=== PATIENT | female | born 1995 | race Caucasian/White ===

== ENCOUNTER 2018-08-16 09:01 | Day surgery (SDC) | payer BC ==
[2018-08-15 13:59] VITALS: BMI 22.8
[2018-08-16 10:28] LABS: #Basophils 0.1 thou/uL (0.0-0.2); #Eosinphils 0.2 thou/uL (0.0-0.7); #Lymphocytes 1.7 thou/uL (1.20-3.40); #Monocytes 0.5 thou/uL (0.11-0.59); #Neutrophils 2.9 thou/uL (1.40-6.50); %Basophils 1.2 % (0.0-1.0); %Lymphocytes 32.4 % (21.0-51.0); %Monocytes 9.2 % (0.0-10.0); %Neutrophils 54.2 % (42.0-75.0); Hemoglobin 15.2 g/dL (12.0-16.0); Mean Corpuscular HGB CONC 33.9 g/dL (32.0-36.0); Mean Corpuscular Hemoglobin 28.5 pg (27.0-31.0); Mean Corpuscular Volume 84.1 fL (78.0-98.0); Mean Platelet Volume 7.3 fL (7.4-10.4); Platelet Count 242 thou/uL (130-400); RBC Distribution Width 11.9 % (11.5-14.5); Red Blood Cell (RBC) Count 5.32 mill/uL (4.20-5.40); White Blood Cell (WBC) Count 5.3 thou/uL (4.8-10.8)
[2018-08-16 10:40] LABS: Bilirubin Negative (Negative); Blood, Urine Trace (Negative); Clarity CLEAR (Clear); Glucose, Urine (Dipstick) Negative (Negative); Leukocyte Negative (Negative); Nitrite Negative (Negative); Protein, Urine (Dipstick) Negative (Neg-Trace); Specific Gravity, Urine 1.021 (1.002-1.036); Urobilinogen 0.2 mg/dL (0.2-1.0); pH, Urine 5.5 (5.0-9.0)
[2018-08-16 10:43] LABS: Bacteria/HPF None Seen HPF (None Seen); Hyaline Casts/LPF 0-3 HYALINE CAST LPF (0-3 Hyaline); Pathc Cast-AUWi Flag 0.13 (0-2.49); RBC/HPF 0-3 HPF (0-3); Squamous Epithelial 0-3 HPF (0-3); WBC/HPF 0-3 HPF (0-3)
[2018-08-16] MEDS ORDERED: Scopolamine 1.5 mg/72 hour Patch ONE (11:05)
[2018-08-16] MEDS ORDERED: Fentanyl 100 MCG/2 ML VIAL ONE (11:07)
[2018-08-16] MEDS ORDERED: Bupivacaine PF 0.5% 30 ML VIAL ONE (11:14)
[2018-08-16] MEDS ORDERED: Bacitracin Zinc Ointment 30 gm TUBE ONE (11:14)
[2018-08-16] MEDS ORDERED: Ketorolac Tromethamine 30 MG/ML VIAL ONE ×2 (13:09→17:08)
[2018-08-16] MEDS ORDERED: diphenhydrAMINE 50 MG/ML VIAL ONE (17:08)
[2018-08-16] MEDS ORDERED: Lidocaine 1% PF 5 ML VIAL ONE (17:08)
[2018-08-16] MEDS ORDERED: Ondansetron PF 4 MG/2 ML Vial ONE (17:08)
[2018-08-16] MEDS ORDERED: Dexamethasone 20 MG/5 ML VIAL ONE (17:08)
[2018-08-16] MEDS ORDERED: PROPOFOL 200 MG/20 ML VIAL ONE (17:08)
--- NOTE | 2018-08-16 20:40 | OP ---
DATE OF PROCEDURE: 08/16/2018 PREOPERATIVE DIAGNOSIS: Right wrist volar ganglion. POSTOPERATIVE DIAGNOSIS: Right wrist volar ganglion. PROCEDURE PERFORMED: Wrist excision of volar ganglion with arthrotomy via radiocarpal joint. FINDINGS: A 2.5 x 1.0 cm ganglion on both sides of flexor carpi radialis tendon with subluxation and decompression of the median nerve primary branch and not the sensory palmar branch. COMPLICATIONS: None. ESTIMATED BLOOD LOSS: 5 mL. TOURNIQUET TIME: 22 minutes. DESCRIPTION OF PROCEDURE: After successful general endotracheal anesthesia, the limb was prepped and draped. We outlined the zigzag incision centered on the mass and slightly radial to it. We then injected with 10 mL of 0.5% Marcaine. We exsanguinated the limb and inflated the tourniquet to 250 mmHg pressure. At this point, we then made a zigzag incision, carried through skin and subcutaneous tissue, and identified the ganglion. We the cutaneous branch of the nerve from the ganglion wall, the ganglion wall from the undersurface of the flexor carpi radialis where it was straddled both over the tendon. We then lifted the tendon up and followed the stalk, went into the scaphoradial joint just radial to the FCR tendon and just ulnar to the artery. We then dissected a 2 mm hole initially in the joint, expanded it to 3, visualized the joint and then removed the stalk. We irrigated this with 3 mL of Celestone, deflated the tourniquet, obtained hemostasis with 2 vessel clips and then closed this with interrupted 4-0 nylon. The patient left the operating room without evidence of anesthetic or operative complication. Job ID: [id number]
== END 2018-08-16 14:22 | disposition home or self-care (01) ==
LOC: SDC 09:01
PROVIDERS: ATTEND Orthopaedic Surgery Hand Surgery
PROC: 0LB50ZZ Excision of Right Lower Arm and Wrist Tendon, Open Approach (ICD-10-PCS; principal; 2018-08-16)
DX: M67.431 Ganglion, right wrist (principal); J45.909 Unspecified asthma, uncomplicated; G43.909 Migraine, unspecified, not intractable, without status migrainosus; F41.9 Anxiety disorder, unspecified; Z79.51 Long term (current) use of inhaled steroids; Z79.899 Other long term (current) drug therapy; Z88.5 Allergy status to narcotic agent; Z88.6 Allergy status to analgesic agent
CPT/HCPCS: 81001; 85025; 88304; J0690; J1100; J1200; J1885; J2001; J2405; J2704; J3010; S0020

== ENCOUNTER 2018-12-16 07:49 | Outpatient (CLI) | payer BC ==
--- NOTE | 2018-12-16 09:32 | MRI ---
MRI Upper Ext Jt Rt W WO Con History: M 65.439 wrist ganglion Comparison: None. Findings: Bones: No acute fracture or malalignment. No contusion. No marrow edema. Scaphoid is intact . Tubercle of the trapezium and the hamate are intact. Tendons: Abnormal increased fluid surrounding the flexor carpi radialis tendon at the level of the pr oximal carpal row to its insertion. There appears to be adjacent susceptibility artifact and focal ectasia of the tendon sheath which may be post surgical in nature. This is at the region of interest marker with the adventitial bursa measuring 1.4 cm in transverse by 0.5 cm and AP by 1.5 cm in craniocaudal dimension. Remainder of the tendons are normal. Soft tissues: A small polar ganglion pseudocyst at the volar lip of the radius at the capsule with ne ar abutment of the radial artery and veins. This small ganglion pseudocyst measures 0.4 x 0.3 x 0.4 cm and is suggests proximal to the iatrogenic/adventitial bursa. Muscles: Muscle signal and bulk is normal. Impression: 1. Focal area of increased tenosynovial fluid which appears to communicate with an iatrogenic/adventi tial bursa of the flexor carpi radialis tendon at the level of the proximal carpal row with adjacent susceptibility. This may be post surgical in nature. 2. Small ganglion pseudocyst at the volar radial lip with size as above.
== END 2018-12-16 07:50 | disposition home or self-care (01) ==
LOC: SCSMRI 07:49
PROVIDERS: ATTEND Orthopaedic Surgery Hand Surgery
DX: M67.431 Ganglion, right wrist (principal); M65.831 Other synovitis and tenosynovitis, right forearm; R93.7 Abnormal findings on diagnostic imaging of other parts of musculoskeletal system

== ENCOUNTER 2019-02-03 06:49 | Outpatient (CLI) | payer BC ==
[2019-02-03 11:35] LABS: #Eosinphils 0.1 thou/uL (0.0-0.7); #Lymphocytes 2.1 thou/uL (1.20-3.40); #Monocytes 0.5 thou/uL (0.11-0.59); #Neutrophils 3.7 thou/uL (1.40-6.50); %Basophils 0.2 % (0.0-1.0); %Monocytes 7.4 % (0.0-10.0); %Neutrophils 57.4 % (42.0-75.0); Hemoglobin 14.5 g/dL (12.0-16.0); Mean Corpuscular Hemoglobin 28.6 pg (27.0-31.0); Mean Platelet Volume 7.8 fL (7.4-10.4); Platelet Count 206 thou/uL (130-400); RBC Distribution Width 12.1 % (11.5-14.5); Red Blood Cell (RBC) Count 5.07 mill/uL (4.20-5.40); White Blood Cell (WBC) Count 6.5 thou/uL (4.8-10.8)
[2019-02-03 11:38] LABS: BHCG - Serum Negative (NEGATIVE); Pregs Control Background? CLEAR/WHITE (CLR/WHITE); Pregs Control Bar Appear? YES (CONTROL BAR)
== END 2019-02-03 06:50 | disposition home or self-care (01) ==
LOC: LABBT 06:49
PROVIDERS: ATTEND Orthopaedic Surgery Hand Surgery
DX: Z01.812 Encounter for preprocedural laboratory examination (principal); M67.431 Ganglion, right wrist
CPT/HCPCS: 84703; 85025

== ENCOUNTER 2019-02-04 08:09 | Day surgery (SDC) | payer BC ==
[2019-02-03 09:40] VITALS: BMI 22.1
[2019-02-04] MEDS ORDERED: Sodium Chloride 0.9% 10 ML ONE (09:47)
[2019-02-04] MEDS ORDERED: Bacitracin Zinc Ointment 30 gm TUBE ONE (09:47)
[2019-02-04] MEDS ORDERED: Betamet Acet/Betamet Na Ph 30 MG/5 ML VIAL ONE (09:47)
[2019-02-04] MEDS ORDERED: Bupivacaine PF 0.5% 30 ML VIAL ONE (09:47)
[2019-02-04] MEDS ORDERED: Fentanyl 100 MCG/2 ML VIAL ONE (09:50)
[2019-02-04] MEDS ORDERED: Midazolam HCl 2 mg/2 ml Vial ONE (09:50)
[2019-02-04] MEDS ORDERED: Ketorolac Tromethamine 30 MG/ML VIAL ONE (11:43)
[2019-02-04] MEDS ORDERED: HYDROcodone/Acetaminophen 5/325 mg Tablet ONE (13:05)
--- NOTE | 2019-02-05 08:35 | OP ---
DATE OF PROCEDURE: 02/04/2019 PREOPERATIVE DIAGNOSIS: 1. Right wrist volar ganglion cyst, recurrent. 2. Right wrist flexor tenosynovitis, flexor carpi radialis tendon based on preop MRI. POSTOPERATIVE DIAGNOSES: 1. Right wrist volar ganglion cyst, recurrent. 2. Right wrist flexor tenosynovitis, flexor carpi radialis tendon based on preop MRI. FINDINGS: 2.0 cm ganglion confluent with a thickened tenosynovium over the flexor carpi radialis tendon and a sessile based stalk on the scaphoradial joint. PROCEDURES PERFORMED: 1. Radioscaphoid joint arthrotomy with ganglion cyst excision. 2. Radical flexor tenosynovectomy, flexor carpi radialis tendon, right wrist. ANESTHESIA: General LMA technique augmented by 20 mL of 0.5% Marcaine, 10 given before surgery, and 10 given after wound closed. ESTIMATED BLOOD LOSS: Less than 20 mL. TOURNIQUET TIME: 28 minutes. COMPLICATIONS: None. INDICATIONS FOR PROCEDURE: The patient returned to clinic six months after previous palmar wrist ganglion excision, reports no wrist pain, but noticed a mass. We did MRI, showed recurrent ganglion along with some tenosynovitis of the flexor tendons and this will be proven by surgical exploration and definitively treated today. DESCRIPTION OF PROCEDURE: After successful general LMA technique, the limb was prepped and draped. The patient had the old incision used, extended 5 mm distal and proximal after exsanguination of the limb and inflation of the tourniquet to 250 mmHg pressure. I went through the skin and subcutaneous tissue. We identified the median nerve branch to preserve these just ulnar to the line of incision. We then found the flexor carpi radialis tendon, saw very thick tenosynovium especially where it began to go ulnar to the scaphoid and then we did a radical flexor tenosynovectomy to protect the median nerve. We then dissected the radial artery off the radial side of the mass, preserved much of its cavity as possible, followed it deep to where it surrounded the flexor carpi radialis, but we were able to free it along this line. At the base, slightly radial, after the radial artery, we found a very sessile type stalk that for 2 cm ganglion, it was almost 5 to 6 mm and removed this from the joint, having joint fluid chondral surface medially. There was no synovitis here at the radioscaphoid joint. We then removed the mass en bloc, released tourniquet, performed hemostasis and then closed the wound with interrupted 4-0 nylon mattress pattern. The patient left the operating room without evidence of anesthetic or operative complication. Job ID: [id number]
== END 2019-02-04 13:50 | disposition home or self-care (01) ==
LOC: SDC 08:09
PROVIDERS: ATTEND Orthopaedic Surgery Hand Surgery
PROC: 0LB50ZZ Excision of Right Lower Arm and Wrist Tendon, Open Approach (ICD-10-PCS; principal; 2019-02-04)
DX: M67.431 Ganglion, right wrist (principal); M65.88 Other synovitis and tenosynovitis, other site; Z88.8 Allergy status to other drugs, medicaments and biological substances
CPT/HCPCS: 88304; 88342; J0690; J0702; J1885; J2250; J3010; J3490; S0020

== ENCOUNTER 2019-02-05 13:40 | Emergency (ER) | payer BC ==
[2019-02-05] MEDS ORDERED: Ketorolac Tromethamine 30 MG/ML VIAL ONE (16:47)
[2019-02-05 17:07] LABS: #Lymphocytes 1.5 thou/uL (1.20-3.40); #Monocytes 0.6 thou/uL (0.11-0.59); #Neutrophils 11.7 thou/uL (1.40-6.50); %Eosinophils 0.1 % (0.0-10.0); %Lymphocytes 10.9 % (21.0-51.0); %Monocytes 4.4 % (0.0-10.0); %Neutrophils 84.6 % (42.0-75.0); Hemoglobin 13.7 g/dL (12.0-16.0); Mean Corpuscular HGB CONC 33.9 g/dL (32.0-36.0); Mean Corpuscular Hemoglobin 29.1 pg (27.0-31.0); Mean Platelet Volume 7.5 fL (7.4-10.4); Platelet Count 219 thou/uL (130-400); RBC Distribution Width 12.2 % (11.5-14.5); Red Blood Cell (RBC) Count 4.69 mill/uL (4.20-5.40); White Blood Cell (WBC) Count 13.8 thou/uL (4.8-10.8)
[2019-02-05 17:34] LABS: ALT (SGPT) 25 U/L (8-55); AST (SGOT) 21 U/L (5-34); Albumin 4.7 g/dL (3.5-5.0); Alkaline Phosphatase 126 U/L (40-110); Anion Gap 12 mmol/L (10-20); BUN (Urea Nitrogen) 12 mg/dL (7.0-18.7); Bilirubin, Total 0.3 mg/dL (0.2-1.2); CK (CPK) 78 U/L (29-168); Calc. Creatinine Clearance 0 mL/min (70-130); Calcium 9.2 mg/dL (7.8-10.44); Carbon Dioxide 25 mmol/L (22-29); Chloride 106 mmol/L (98-107); Estimated GFR-MDRD 73; Globulin 2.2 g/dL (2.4-3.5); Glucose 86 mg/dL (70-105); Protein, Total 6.9 g/dL (6.0-8.3); Sodium 139 mmol/L (136-145)
== END 2019-02-05 17:50 | disposition home or self-care (01) ==
LOC: ERS 13:40
DX: M79.605 Pain in left leg (principal); M79.604 Pain in right leg
CPT/HCPCS: 36415; 80053; 82550; 85025; 85379; 96372; 99283; J1885